=== PATIENT | male | born 1965 | race African-American/Black ===

== ENCOUNTER 2020-03-07 11:49 | Emergency (ER) | payer MEDICAID ==
[~2020-03-07] VITALS: Ht 177.8 cm; Wt 81.0 kg
[2020-03-07 12:26] VITALS: BP 151/89
[2020-03-07] MEDS ORDERED: IBUPROFEN 600MG TABLET PO ONE (12:45)
== END 2020-03-07 14:11 | disposition home or self-care (01) ==
LOC: ER 11:49
DX: Z48.00 Encounter for change or removal of nonsurgical wound dressing (principal); M54.5 Low back pain
CPT/HCPCS: 99282